=== PATIENT | male | born 1975 | race Two or more races ===

== ENCOUNTER 2022-03-14 13:20 | Emergency (ER) | payer MEDICAID ==
[~2022-03-14] VITALS: Ht 165.1 cm; Wt 63.0 kg
[~2022-03-14 13:20] MED LIST: ASPI-986 MT; DOCU-138 MT; HYDR-4001 PO; IBUP-2030 MT
[2022-03-14 13:37] VITALS: BP 125/82
== END 2022-03-14 17:38 | disposition home or self-care (01) ==
LOC: ER 13:27
DX: Z48.02 Encounter for removal of sutures (principal)
CPT/HCPCS: 99281; Z7610